=== PATIENT | male | born 1950 | race Caucasian/White ===

== ENCOUNTER → 2020-12-05 | Outpatient (CLI) | payer BC ==
--- NOTE | 2020-12-06 08:01 | CT ---
EXAMINATION TYPE: CT chest w con DATE OF EXAM: 12/05/2020 COMPARISON: None HISTORY: Malignant neoplasm of right sided tonsil. History of prostate cancer. CT DLP: 447.3 mGycm Automated exposure control for dose reduction was used. CONTRAST: CT scan of the chest is performed with IV Contrast, patient injected with 80ml mL of Isovue 300. FINDINGS: LUNGS: The lungs are grossly clear, there is no concerning parenchymal mass or nodule identified. T here is no pleural effusion or pneumothorax seen. The tracheobronchial tree is patent. MEDIASTINUM: There are no greater than 1 cm hilar or mediastinal lymph nodes. No pericardial effusi on is seen. Ascending thoracic aortic aneurysm measuring 4.3 cm AP dimension. The heart is not enlarg ed. UPPER ABDOMEN: No significant abnormality appreciated. OTHER: No additional significant abnormality is seen. IMPRESSION: 1. No evidence of metastatic disease to the chest. 2. Ascending thoracic aortic aneurysm.
== END | disposition home or self-care (01) ==
LOC: RADCTMAIN 16:55
PROVIDERS: ATTEND Otolaryngology
DX: C09.0 Malignant neoplasm of tonsillar fossa (principal); I71.2 Thoracic aortic aneurysm, without rupture
CPT/HCPCS: 82565; 84520; 71260; 36415; Q9967

== ENCOUNTER → 2020-12-13 | Outpatient (CLI) | payer BC ==
--- NOTE | 2020-12-16 08:44 | PE ---
EXAMINATION TYPE: PET CT fusion skull to thigh DATE OF EXAM: 12/13/2020 COMPARISON: Chest CT December 05, 2020 HISTORY: Right sided Tonsillar or throat cancer diagnosed on biopsy in October. No Treatment so far. TECHNIQUE: Following the intravenous administration of 12.03 mCi of F-18 FDG, whole body images are performed from the skull base to the midthigh. Images are reviewed on the computer in the coronal, a xial, and sagittal planes. Reconstructed rotating images are created on independent workstation and reviewed on the computer. A localization and attenuation correction CT is performed in conjunction with the PET scan. Dedicated PET/CT imaging of the neck. Blood glucose level equals 93. SCAN: Initial Scan FINDINGS: SKULL BASE AND NECK: There is large heterogeneous hypermetabolic right tongue base mass measuring ap proximately 3.5 x 3.3 cm axial image 45, the max SUV is 16.6. There is asymmetric left-sided thickeni ng with mild hypermetabolic uptake axial image 42, max SUV is 5.5 at this level. This level should be correlated with findings during direct physical exam by ENT. There is a suspicious 9 x 9 mm hypermetabolic lymph node axial image 48 posterior to right submandibu lar gland above hyoid bone, max SUV is 4.81. Additional smaller but suspicious subcentimeter hypermet abolic lymph node at level of hyoid bone along the right lateral aspect axial image 52 has max SUV of 3.47. No enlarged or hypermetabolic left neck adenopathy clearly seen. CHEST, MEDIASTINUM, AND HILAR REGION: No suspicious hypermetabolic uptake. ABDOMEN AND PELVIS: Normal excretion. No abnormal hypermetabolic uptake. OSSEOUS STRUCTURES: No suspicious hypermetabolic uptake. Mild uptake bilateral acromioclavicular join ts presumed inflammatory. OTHER CT: Ascending aortic aneurysm up to 4.6 cm axial image 106 on this study. Qodb-ws-aorrnsgr laura nary artery calcification is present. Prominent superficial vessel in the left breast is incidentally noted. Cholecystectomy clips are redemonstrated. Diverticula in the left and sigmoid colon are noted. Prosta te gland is surgically absent or atrophic in size. Multilevel spurring in the spine. IMPRESSION: Confirmation of known right tongue base neoplasm fairly large in size near 4.0 cm. Left-s ided involvement cannot be excluded. Correlate with findings during direct visualization. Abnormal ri ght neck adenopathy above and at level of hyoid bone. No distal metastatic disease.
== END | disposition home or self-care (01) ==
LOC: RADPETMAIN 13:38
PROVIDERS: ATTEND Radiology Radiation Oncology
DX: C09.8 Malignant neoplasm of overlapping sites of tonsil (principal); R59.0 Localized enlarged lymph nodes
CPT/HCPCS: 78815; A9552

== ENCOUNTER → 2020-12-25 | Outpatient (CLI) | payer BC ==
[2020-12-25 15:01] LABS: African American GFR (CKD) >90 (>60 ml/min/1.73 sqM); Blood Urea Nitrogen 16 mg/dL (9-20); Non-African American GFR(CKD) 88 (>60 ml/min/1.73 sqM)
--- NOTE | 2020-12-25 15:44 | CT ---
EXAMINATION TYPE: CT soft tissue neck w con DATE OF EXAM: 12/25/2020 COMPARISON: PET/CT 10 days ago. Outside neck CT October 07, 2020 HISTORY: f/u throat ca CT DLP: 593 mGycm. Automated Exposure Control for Dose Reduction was Utilized. TECHNIQUE: CT scan of the neck is performed with IV Contrast, patient injected with 100 mL of Isovue 300, axial images are obtained, coronal and sagittal reformatted images are reviewed. FINDINGS: Airway: Persistent right-sided oropharyngeal mass or neoplasm with local mass effect measuring 4.0 x 3.9 cm axial image 40 x 5.2 cm craniocaudal dimension coronal image 49 corresponds to site of hyperme tabolic uptake on PET/CT. Less prominent curvilinear left-sided enhancing nodular soft tissue the lev el of the axial image 40 is present correlating with PET/CT. There is narrowing but patency of the or opharyngeal airway deviated to left of midline. More prominent narrowing at this level coronal images 48 and 49 from recent PET/CT There is increased prominence of the hard palate and possibly palatine tonsils on current study narrowing the nasopharyngeal airway on this study are more prominent from PE T/CT on sagittal images. Remainder of the airway remains patent. Parotid/submandibular glands: No gross abnormality seen. Carotid/Vascular Structures: Mild plaque bilateral carotid bulb level without significant stenosis. D ominant right vertebral artery, vertebral arteries patent to basilar junction. Osseous Structures: Slight grade 1 retrolisthesis C4 on C5 and C5 on C6 with mild to moderate disc sp misa narrowing at these levels . Other: Suspicious bilateral neck lymph nodes correspond to recent PET/CT submandibular level above th e hyoid bone between carotid and jugular vessels and submandibular glands for reference on the right measuring 1.3 x 1.1 cm on the left measuring 1.1 x 1.0 cm on axial image 48. No significant change fr om recent PET/CT. 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
== END | disposition home or self-care (01) ==
LOC: RADCTMAIN 14:24
PROVIDERS: ATTEND Internal Medicine Hematology & Oncology
DX: Z03.89 Encounter for observation for other suspected diseases and conditions ruled out (principal); C76.0 Malignant neoplasm of head, face and neck
CPT/HCPCS: 82565; 84520; 70491; 36415; Q9967

== ENCOUNTER → 2021-04-07 | Outpatient (CLI) | payer BC ==
--- NOTE | 2021-04-08 07:56 | CT ---
EXAMINATION TYPE: CT soft tissue neck wo/w con DATE OF EXAM: 04/07/2021 HISTORY: Malignant neoplasm of tonsillar pillar COMPARISON: CT neck December 25, 2020. PET/CT December 13, 2020 CT DLP: 921.60 mGycm. Automated Exposure Control for Dose Reduction was Utilized. TECHNIQUE: CT scan of the neck is performed without and with IV Contrast, patient injected with 80 m L of Isovue 300, axial images are obtained, coronal and sagittal reformatted images are reviewed. FINDINGS: Airway: Small 1.1 cm focus of groundglass opacity right lung apex axial image 35 is nonspecific. Deve loping infectious processes in differential, correlate clinically. Large right-sided oropharyngeal mass or neoplasm at level of the tongue bases not distinctly identifi ed on current study after treatment. Asymmetric heterogeneous soft tissue thickening measuring roughl y 1.7 x 1.7 cm size image 63 remains present. Some fluid or retained secretions now fills the vallecula. Hypopharyngeal airway is narrowed with muc osal thickening and enhancement present posttreatment change. No definitive new enhancing mass or taiwo nopathy identified. Stable somewhat small size thyroid gland. Parotid/submandibular glands: No gross abnormality seen. Carotid/Vascular Structures: Prominent ascending aorta up to 4.6 cm on lower axial images . Mild calc ified plaque bilateral carotid bulb level. Vertebral arteries are patent to basilar junction, dominan t right vertebral artery redemonstrated. Osseous Structures: Exaggerated cervical curvature with grade 1 retrolisthesis C4 on C5 redemonstrate d. Other: Smaller caliber right maxillary sinus, suspect old healed fracture redemonstrated. Nasal septu m redemonstrated deviated to right of midline. IMPRESSION: Positive treatment response as detailed above.
== END | disposition home or self-care (01) ==
LOC: RADCTMAIN 15:46
PROVIDERS: ATTEND Radiology Radiation Oncology
DX: C09.1 Malignant neoplasm of tonsillar pillar (anterior) (posterior) (principal)
CPT/HCPCS: 82565; 84520; 70492; 36415; Q9967

== ENCOUNTER → 2021-05-09 | Outpatient (CLI) | payer BC ==
--- NOTE | 2021-05-11 06:59 | PE ---
EXAMINATION TYPE: PET CT fusion skull to thigh DATE OF EXAM: 05/09/2021 COMPARISON: Prior PET/CT December 13, 2020. Most recent neck CT April 07, 2021 and older CTs. 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 TECHNIQUE: Following the intravenous administration of 7.54 mCi of F-18 FDG, whole body images are p erformed from the skull base to the midthigh. Images are reviewed on the computer in the coronal, ax ial, and sagittal planes. Reconstructed rotating images are created on independent workstation and r eviewed on the computer. A localization and attenuation correction CT is performed in conjunction w ith the PET scan. Blood glucose level equals 95. Dedicated PET/CT imaging of the neck is performed. SCAN: Subsequent Scan FINDINGS: SKULL BASE AND NECK: Correlating with most recent CT no residual hypermetabolic uptake in the right l ateral tongue base. No residual hypermetabolic uptake in the smaller area of involvement left aspect. No hypermetabolic new or residual lymph nodes identified on current study. CHEST, MEDIASTINUM, AND HILAR REGION: No new areas of suspicious hypermetabolic uptake. ABDOMEN AND PELVIS: Normal excretion. No new areas of abnormal hypermetabolic uptake. OSSEOUS STRUCTURES: No suspicious hypermetabolic uptake. Mild uptake bilateral acromioclavicular join ts presumed inflammatory is redemonstrated. OTHER CT: Nasal septal deviation redemonstrated. Ascending aortic aneurysm up to 4.7 cm is redemonstr ated. Khut-yj-ucavyeep three-vessel coronary artery calcification is redemonstrated. Prominent tortuo us superficial vessel in the left breast is redemonstrated. Cholecystectomy clips are redemonstrated. Diverticula in the left and sigmoid colon are again seen. P rostate gland is surgically absent or atrophic in size. Multilevel spurring in the spine. IMPRESSION: Complete positive treatment response. No residual or new hypermetabolic lesions evident.
== END | disposition home or self-care (01) ==
LOC: RADPETMAIN 15:25
PROVIDERS: ATTEND Radiology Radiation Oncology
DX: Z00.6 Encounter for examination for normal comparison and control in clinical research program (principal); C09.1 Malignant neoplasm of tonsillar pillar (anterior) (posterior); C77.9 Secondary and unspecified malignant neoplasm of lymph node, unspecified; Z85.46 Personal history of malignant neoplasm of prostate; Z79.899 Other long term (current) drug therapy
CPT/HCPCS: 78815; A9552

== ENCOUNTER 2021-07-29 10:12 | Emergency (ER) | payer BC, OTHER ==
[2021-07-29 10:20] VITALS: RESP 20; TEMP 98
[2021-07-29 10:41] LABS: Basophils % (A) 1 %; Eosinophils # (A) 0.1 k/uL (0-0.7); Eosinophils % (A) 3 %; HCT 35.5 % (39.0-53.0); HGB 12.2 gm/dL (13.0-17.5); Lymphocytes # (A) 0.6 k/uL (1.0-4.8); Lymphocytes % (A) 19 %; MCH 31.4 pg (25.0-35.0); MCHC 34.4 g/dL (31.0-37.0); MCV 91.2 fL (80.0-100.0); Mean Platelet Volume 8.3; Monocytes # (A) 0.2 k/uL (0-1.0); Monocytes % (A) 7 %; Neutrophils # (A) 2.1 k/uL (1.3-7.7); Neutrophils % (A) 66 %; Platelet Count 217 k/uL (150-450); RBC 3.89 m/uL (4.30-5.90); RDW 13.7 % (11.5-15.5); WBC 3.2 k/uL (3.8-10.6)
[2021-07-29 10:45] LABS: ALT 15 U/L (4-49); AST 20 U/L (17-59); African American GFR (CKD) >90 (>60 ml/min/1.73 sqM); Albumin 3.6 g/dL (3.5-5.0); Alkaline Phosphatase 98 U/L (38-126); Anion Gap 7 mmol/L; Blood Urea Nitrogen 19 mg/dL (9-20); Calcium 8.8 mg/dL (8.4-10.2); Carbon Dioxide 22 mmol/L (22-30); Chloride 101 mmol/L (98-107); Glucose 125 mg/dL (74-99); Non-African American GFR(CKD) 85 (>60 ml/min/1.73 sqM); Potassium 4.1 mmol/L (3.5-5.1); Sodium 130 mmol/L (137-145); Total Bilirubin 0.6 mg/dL (0.2-1.3); Total Protein 6.4 g/dL (6.3-8.2)
--- NOTE | 2021-07-29 14:47 | ED ---
Abdominal Pain HPI - General Chief Complaint: Abdominal Pain Stated Complaint: IHS-pulled muscle Time Seen by Provider: 07/29/21 13:18 Source: patient Mode of arrival: ambulatory Limitations: no limitations - History of Present Illness Initial Comments: 70-year-old male presents to the emergency Department with groin pain. Patient states that he was at work pushing heavy product when he felt a sudden sharp stabbing pain in his right groin. He denies feeling a bulge. No previous history of inguinal hernias. He began feeling sweaty, nauseated. They were able to obtain his vital signs and the patient had a low heart rate. He denies any pain into his testicles. No flank pain. No changes in his bowel or bladder habits. He did not take anything for the pain yet. He does report a history of an umbilical hernia which was previously repaired. No scrotal swelling. No penile discharge. No other alleviating, precipitating modifying factors - Related Data Allergies Allergy/AdvReac Type Severity Reaction Status Date / Time No Known Allergies Allergy Verified 07/29/21 10:20 Review of Systems ROS Statement: Those systems with pertinent positive or pertinent negative responses have been documented in the HPI. ROS Other: All systems not noted in ROS Statement are negative. Past Medical History Past Medical History: Coronary Artery Disease (CAD), Hypertension History of Any Multi-Drug Resistant Organisms: None Reported Past Surgical History: Hernia Repair, Orthopedic Surgery Past Psychological History: No Psychological Hx Reported Smoking Status: Never smoker Past Alcohol Use History: Occasional Past Drug Use History: None Reported General Exam Limitations: no limitations General appearance: alert, in no apparent distress Head exam: Present: atraumatic, normocephalic, normal inspection Eye exam: Present: normal appearance, PERRL, EOMI. Absent: scleral icterus, conjunctival injection, periorbital swelling ENT exam: Present: normal exam, mucous membranes moist Neck exam: Present: normal inspection. Absent: tenderness, meningismus, lymphadenopathy Respiratory exam: Present: normal lung sounds bilaterally. Absent: respiratory distress, wheezes, rales, rhonchi, stridor Cardiovascular Exam: Present: regular rate, normal rhythm, normal heart sounds. Absent: systolic murmur, diastolic murmur, rubs, gallop, clicks GI/Abdominal exam: Present: soft, normal bowel sounds. Absent: distended, tenderness, guarding, rebound, rigid exam: Present: normal inspection, other (no inguinal hernia palpated bilaterally. palable mobile rubbery mass right groin consistent with lymph node). Absent: testicular tenderness, scrotal swelling Extremities exam: Present: normal inspection, full ROM, normal capillary refill. Absent: tenderness, pedal edema, joint swelling, calf tenderness Back exam: Present: normal inspection Neurological exam: Present: alert, oriented X3, CN II-XII intact Psychiatric exam: Present: normal affect, normal mood Skin exam: Present: warm, dry, intact, normal color. Absent: rash Course Vital Signs 07/29/21 07/29/21 10:17 15:10 Temperature 98 F Pulse Rate 55 L 62 Respiratory 20 20 Rate Blood Pressure 150/71 142/70 O2 Sat by Pulse 100 100 Oximetry Medical Decision Making - Medical Decision Making Upon arrival patient was placed into room 27. A thorough history and physical exam was performed. Laboratory studies are conducted and a groin ultrasound is ordered. Patient is offered something for pain control however refuses. Ultrasound is performed which demonstrates no acute hernia. Patient will be discharged home at this time to follow up with primary care doctor and return for any worsening symptoms. - Lab Data Result diagrams: 07/29/21 10:21 07/29/21 10:21 Lab Results 07/29/21 07/29/21 07/29/21 Range/Units 10:21 10:21 13:16 WBC 3.2 L (3.8-10.6) k/uL RBC 3.89 L (4.30-5.90) m/uL Hgb 12.2 L (13.0-17.5) gm/dL Hct 35.5 L (39.0-53.0) % MCV 91.2 (80.0-100.0) fL MCH 31.4 (25.0-35.0) pg MCHC 34.4 (31.0-37.0) g/dL RDW 13.7 (11.5-15.5) % Plt Count 217 (150-450) k/uL MPV 8.3 Neutrophils % 66 % Lymphocytes % 19 % Monocytes % 7 % Eosinophils % 3 % Basophils % 1 % Neutrophils # 2.1 (1.3-7.7) k/uL Lymphocytes # 0.6 L (1.0-4.8) k/uL Monocytes # 0.2 (0-1.0) k/uL Eosinophils # 0.1 (0-0.7) k/uL Basophils # 0.0 (0-0.2) k/uL Sodium 130 L (137-145) mmol/L Potassium 4.1 (3.5-5.1) mmol/L Chloride 101 (98-107) mmol/L Carbon Dioxide 22 (22-30) mmol/L Anion Gap 7 mmol/L BUN 19 (9-20) mg/dL Creatinine 0.92 (0.66-1.25) mg/dL Est GFR (CKD-EPI)AfAm >90 (>60 ml/min/1.73 sqM) Est GFR (CKD-EPI)NonAf 85 (>60 ml/min/1.73 sqM) Glucose 125 H (74-99) mg/dL Calcium 8.8 (8.4-10.2) mg/dL Total Bilirubin 0.6 (0.2-1.3) mg/dL AST 20 (17-59) U/L ALT 15 (4-49) U/L Alkaline Phosphatase 98 (38-126) U/L Total Protein 6.4 (6.3-8.2) g/dL Albumin 3.6 (3.5-5.0) g/dL Urine Color Yellow Urine Appearance Clear (Clear) Urine pH 5.5 (5.0-8.0) Ur Specific Mineral 1.019 (1.001-1.035) Urine Protein Negative (Negative) Urine Glucose (UA) Negative (Negative) Urine Ketones Negative (Negative) Urine Blood Negative (Negative) Urine Nitrite Negative (Negative) Urine Bilirubin Negative (Negative) Urine Urobilinogen <2.0 (<2.0) mg/dL Ur Leukocyte Esterase Negative (Negative) Disposition Clinical Impression: Groin pain Disposition: HOME SELF-CARE Condition: Stable Instructions (If sedation given, give patient instructions): Groin Pain (ED) Is patient prescribed a controlled substance at d/c from ED?: No Referrals: Urbano Kelly MD [Primary Care Provider] - 1-2 days Time of Disposition: 14:59
--- NOTE | 2021-07-29 14:57 | US ---
EXAMINATION TYPE: US groin RT DATE OF EXAM: 07/29/2021 COMPARISON: PET/CT May 09, 2021 CLINICAL HISTORY: right groin pain after lifting injury. 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 US right groin findings: no hernia is seen medial right suprapubic area or at right groin with or wit hout Valsalva Maneuver. Right groin lymph node is seen at patient's area of pain: 1.6 x 1.6 x 0.9cm. No obvious hernia including during dynamic imaging. Incidental benign-appearing lymph node marked tow ards the end of study. IMPRESSION: As above.
[2021-07-29 15:00] LABS: Appearance,Urine Clear (Clear); Bilirubin,Urine Negative (Negative); Blood,Urine Negative (Negative); Color,Urine Yellow; Glucose,Urine (UA) Negative (Negative); Ketones,Urine Negative (Negative); Leukocyte Esterase,Urine Negative (Negative); Nitrite,Urine Negative (Negative); PH, Urine 5.5 (5.0-8.0); Protein,Urine Negative (Negative); Specific Gravity,Urine 1.019 (1.001-1.035); Urobilinogen,Urine <2.0 mg/dL (<2.0)
[2021-07-29 15:12] VITALS: BP 142/70; PULSE 62
== END 2021-07-29 15:11 | disposition home or self-care (01) ==
LOC: EC 10:12
DX: K42.9 Umbilical hernia without obstruction or gangrene (principal)
CPT/HCPCS: 36415; 80053; 81003; 85025; 99284

== ENCOUNTER → 2022-04-23 | Outpatient (CLI) | payer BC ==
--- NOTE | 2022-04-23 16:50 | CT ---
EXAMINATION TYPE: CT chest w con CT DLP: 432.7 mGycm, Automated exposure control for dose reduction was used. DATE OF EXAM: 04/23/2022 4:27 PM COMPARISON: Chest CT 12/05/2020 CLINICAL INDICATION:Male, 71 years old with history of Z08 Z85.89 C09.9 Z90.49 Z92.21 C77.9 C07.9 1; [facility], Tonsil CA is 2020. R/O suspected Mets. TECHNIQUE: Multiple axial images were obtained through the chest. Sagittal and coronal reformats were created for review. Contrast used:70cc mL of Isovue 300 with IV Contrast Oral contrast used: none. FINDINGS: LUNGS/ PLEURA: The lung parenchyma appears unremarkable. AIRWAY: Patent and unremarkable. HEART: Size within normal limits. MEDIASTINUM: No gross evidence of adenopathy. VASCULATURE: No aortic aneurysm. Multiple anterior abdominal wall collaterals are visualized there i s a diminutive appearance of the left brachiocephalic vein. MUSCULOSKELETAL: No acute osseous abnormalities SOFT TISSUES/LYMPH NODES: Unremarkable. LOWER NECK: No significant findings. UPPER ABDOMEN: The gallbladder is surgically absent. IMPRESSION: 1. No evidence for lymphadenopathy or finding to suggest metastatic disease. 2. 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 Any further CTs in the future the patient should have IV contrast with e jection through the right upper extremity.
== END | disposition home or self-care (01) ==
LOC: RADCTMAIN 15:17
PROVIDERS: ATTEND Radiology Radiation Oncology
DX: Z08 Encounter for follow-up examination after completed treatment for malignant neoplasm (principal); C09.9 Malignant neoplasm of tonsil, unspecified; Z90.49 Acquired absence of other specified parts of digestive tract; Z92.21 Personal history of antineoplastic chemotherapy; Z85.89 Personal history of malignant neoplasm of other organs and systems; Z79.899 Other long term (current) drug therapy; Z85.46 Personal history of malignant neoplasm of prostate
CPT/HCPCS: 82565; 84520; 71260; 36415; Q9967

== ENCOUNTER → 2023-08-09 | Outpatient (CLI) | payer BC ==
[2023-08-09 16:09] LABS: African American GFR (CKD) >90 (>60 ml/min/1.73 sqM); Blood Urea Nitrogen 19 mg/dL (9-20); Non-African American GFR(CKD) 80 (>60 ml/min/1.73 sqM)
--- NOTE | 2023-08-09 18:51 | CT ---
EXAMINATION TYPE: CT neck chest w con DATE OF EXAM: 08/09/2023 5:13 PM COMPARISON: CT chest dated 04/23/[address] soft tissue neck dated 04/07/2021 HISTORY: Tonsill Ca. CT DLP: 1015.9 mGycm Automated exposure control for dose reduction was used. CONTRAST: CT scan of the neck is performed following with IV Contrast, patient injected with 100 mL of Isovue 3 00. Axial images are obtained, coronal and sagittal reformatted images are reviewed. FINDINGS: CT neck: There are no supraclavicular lymph nodes. There is no thyroid mass or gross enlargement. The larynx including the cricoid, arytenoid and thyroid cartilages as well as the vocal cords are nor mal and symmetric. The tongue base, epiglottis, aryepiglottic folds, piriform sinuses and vallecula are normal and symme tric. The mass seen on the prior study dating back to 12/05/2020 in the right tonsillar region has comp letely resolved in the interval and there is no recurrent neoplasm. The parotid and submandibular glands are normal and symmetric without focal mass or gross enlargement . There is no pharyngeal or parapharyngeal soft tissue mass or enhancement The great vessels of the neck are normal. There are few scattered nonenlarged jugular lymph nodes and submental lymph nodes but there is no lym phadenopathy. There is no soft tissue swelling, inflammation or abscess. There is acute sinusitis involving the maxillary sinuses. The mastoid air cells are well aerated. CT chest: The lungs are clear and there is no suspicious lung mass or nodule. There are a few stable scattered micronodules. There is no abnormal airspace/consolidative density or abnormal interstitial density. There is 4.5 cm aneurysmal dilatation of the ascending thoracic aorta which is stable. There is no mediastinal, hilar or axillary adenopathy. There is no evidence of pulmonary embolism. There is no pleural effusion, pleural thickening or pneumothorax. Limited scans through the upper abdomen reveals no gross abnormality. No focal osseous lesions are seen. IMPRESSION: 1. No evidence of recurrent or metastatic disease within the soft tissues neck or chest. 2. Acute sinusitis involving maxillary sinuses. 3. Stable 4.5 cm aneurysmal dilatation of the ascending thoracic aorta.
== END | disposition home or self-care (01) ==
LOC: RADCTMAIN 15:16
PROVIDERS: ATTEND Radiology Radiation Oncology
DX: I71.21 Aneurysm of the ascending aorta, without rupture (principal); J01.00 Acute maxillary sinusitis, unspecified; C77.9 Secondary and unspecified malignant neoplasm of lymph node, unspecified; C09.1 Malignant neoplasm of tonsillar pillar (anterior) (posterior); Z85.46 Personal history of malignant neoplasm of prostate; Z90.49 Acquired absence of other specified parts of digestive tract; Z79.899 Other long term (current) drug therapy; Z85.89 Personal history of malignant neoplasm of other organs and systems
CPT/HCPCS: 82565; 84520; 70491; 71260; 36415; Q9967

== ENCOUNTER → 2024-06-12 | Outpatient (CLI) | payer BC ==
--- NOTE | 2024-06-13 10:37 | FL ---
Modified barium swallow. HISTORY: Dysphagia. Modified barium swallow was performed with the department of speech pathology. The patient was prese nted with various consistencies of barium. There is no evidence for aspiration or penetration. Full report is to follow from the department of speech pathology. Impression: Normal study. [facility], , 06/13/2024 10:35 AM
== END | disposition home or self-care (01) ==
LOC: RADFLMAIN 12:25
PROVIDERS: ATTEND Student in an Organized Health Care Education/Training Program
DX: R13.10 Dysphagia, unspecified (principal)
CPT/HCPCS: 74230

== ENCOUNTER → 2024-08-09 | Outpatient (CLI) | payer BC ==
[2024-08-09 16:36] LABS: African American GFR (CKD) 88 (>60 ml/min/1.73 sqM); Blood Urea Nitrogen 21 mg/dL (9-20); Non-African American GFR(CKD) 76 (>60 ml/min/1.73 sqM)
--- NOTE | 2024-08-09 21:52 | CT ---
EXAMINATION TYPE: CT neck chest w con CT DLP: 1465 mGycm, Automated exposure control for dose reduction was used. DATE OF EXAM: 08/09/2024 5:49 PM COMPARISON: CT neck chest 08/09/2023, CT chest 04/23/2022, PET/CT 05/09/2021, CT soft tissue neck 04/07/2021 , 12/25/2020, PET/CT 12/13/2020, CT chest 12/05/2020. CLINICAL INDICATION:Male, 73 years old with history of C09.1 TONSIL CA Z08 FU Z85.89 HX ORGAN CA C09. 9;, follow up tonsil cancer TECHNIQUE: Standard enhanced CT of the neck and chest. Axial sections with coronal and sagittal refo rmats were obtained. Contrast used:100 mL of Isovue 300 with IV Contrast FINDINGS: BRAIN: Visualized portions are grossly unremarkable. ORBITS: Bilateral aphakia. SINUSES: Grossly unremarkable. SPACES OF THE NECK: The larynx including the cricoid, arytenoid and thyroid cartilage as well as the vocal cords are normal and symmetric. The tongue base, epiglottis, aryepiglottic folds, piriform sinuses and vallecula are normal and symme tric. The mass previously seen in prior study in 2020 in the right tonsillar region is no longer visu alized. No evidence for recurrent neoplasm. The parotid and submental glands are normal symmetric without suspicious lesion or enlargement. No pharyngeal or paravertebral soft tissue mass or enhancement. MUSCULOSKELETAL: No acute osseous pathology. Degenerative disc disease changes of the visualized spin e are present. No aggressive osseous lesion. LYMPH NODES: No pathologically enlarged lymph nodes identified.. VASCULAR STRUCTURES: Limited enhancement of the arterial vasculature. Contrast is in the venous phase . Mild bilateral carotid bulb calcifications. THORACIC INLET/AIRWAY: Airway is patent. The lung apices are clear. SOFT TISSUES/THYROID: Thyroid is atrophic. The remainder of the soft tissues are unremarkable. OTHER: none. LUNGS/ PLEURA: No pleural effusion, pneumothorax, focal consolidation. No suspicious pulmonary nodule or mass. AIRWAY: Patent and unremarkable. HEART: Size within normal limits. . No pericardial effusion. Mild coronary arterial calcifications. MEDIASTINUM: No evidence of adenopathy. VASCULATURE: Stable aneurysmal dilatation of the ascending thoracic aorta measuring up to 4.6 cm. Pr eviously 4.7 cm when measured with similar technique. Small aortic valvular calcifications. Conventio nal three-vessel aortic arch. Minimal atelectatic calcification of the aorta and its branches. MUSCULOSKELETAL: No acute osseous abnormalities. No aggressive osseous lesion. Mild multilevel degene rative disc disease. SOFT TISSUES/LYMPH NODES: Unremarkable. LOWER NECK: No significant findings. UPPER ABDOMEN: No significant findings. IMPRESSION: 1. No evidence for recurrent or metastatic disease within the neck or chest. 2. Stable aneurysmal dilatation ascending thoracic aorta measuring up to 4.6 cm. [facility], , 08/09/2024 9:50 PM
== END | disposition home or self-care (01) ==
LOC: RADCTMAIN 15:31
PROVIDERS: ATTEND Radiology Radiation Oncology
DX: Z08 Encounter for follow-up examination after completed treatment for malignant neoplasm (principal); Z00.6 Encounter for examination for normal comparison and control in clinical research program; C09.1 Malignant neoplasm of tonsillar pillar (anterior) (posterior); C09.9 Malignant neoplasm of tonsil, unspecified; I71.21 Aneurysm of the ascending aorta, without rupture; C77.9 Secondary and unspecified malignant neoplasm of lymph node, unspecified; Z85.46 Personal history of malignant neoplasm of prostate; Z85.89 Personal history of malignant neoplasm of other organs and systems; Z90.49 Acquired absence of other specified parts of digestive tract; Z92.21 Personal history of antineoplastic chemotherapy; Z79.899 Other long term (current) drug therapy
CPT/HCPCS: 82565; 84520; 70491; 71260; 36415; Q9967